=== PATIENT | female | born 1990 | race Caucasian/White ===

== ENCOUNTER 2022-04-20 17:22 | Emergency (ER) | payer BC, SELFPAY ==
[2022-04-20 18:10] VITALS: BP 111/79; PULSE 94; RESP 18; TEMP 36.4; O2SAT 98
--- NOTE | 2022-04-20 18:32 | ED.EAR ---
HPI - Ear Problem General Chief complaint: Ear Stated complaint: bilateral ear pain Time Seen by Provider: 04/20/22 18:15 Source: patient Mode of arrival: ambulatory Limitations: no limitations History of Present Illness HPI Narrative: Jovita is a 31-year-old female patient presenting to clinic today with complaints of nasal congestion, bilateral ear pain, and sore throat. She reports her symptoms began after [facility]. States that she has had a fever and some chills. Related Data Home Medications Medication Instructions Recorded Confirmed cetirizine 10 mg tablet (Zyrtec) 10 mg PO DAILY 04/20/22 04/20/22 cholecalciferol (vitamin D3) 50 50 mcg PO DAILY 04/20/22 04/20/22 mcg (2,000 unit) capsule (Vitamin D3) docusate calcium 50 mg capsule 50 mg PO DAILY 04/20/22 04/20/22 escitalopram oxalate 20 mg tablet 20 mg DAILY 04/20/22 04/20/22 montelukast 10 mg tablet 10 mg PO QPM 04/20/22 04/20/22 (Singulair) vitamin-ferrous 1 tablet PO DAILY 04/20/22 04/20/22 sulfate-folic acid 27 mg-0.3 mg tablet Allergies Allergy/AdvReac Type Severity Reaction Status Date / Time Sulfa (Sulfonamide Allergy Vomiting Verified 04/20/22 18:16 Antibiotics) Review of Systems Review of Systems: Pertinent positives per HPI. Patient denies any rash, headache, visual changes, dizziness, shortness of breath, chest pain, palpitations, nausea, vomiting, diarrhea, constipation, abdominal pain, or any urinary issues. [facility] Comments At the time of my signature, I reviewed and agree with the nursing past medical, surgical, social, and family history. There is no relevant family history pertinent to the patient complaint. Exam Narrative: General: Well-developed, well nourished, in no apparent distress Head: Normocephalic, atraumatic Eyes: Pupils equally round and reactive to light bilaterally, EOM intact, sclera and conjunctive clear, no discharge, lids normal Ears: TMs intact, bulging, red ear canals clear, no drainage, grossly hearing normal. Nose: Nares patent, clear nasal discharge, no inflammation, no sinus tenderness. Mouth: Oral pharynx without lesions or masses, good dentition, MMM. Oropharynx red Neck: Supple, trachea midline, mild enlargement of anterior or posterior cervical nodes, no thyroid masses or goiter palpable. Cardio: Regular rate and rhythm, s1 and s2 normal, no murmur appreciated. Resp: Clear to auscultation bilaterally, no rhonchi, rales, wheezing or rubs Course Course Emergency Course: Portions of this record may have been created with voice recognition software. Level of Care: Express Care Visit Vital Signs Vital signs: Vital Signs Temperature 36.4 C L 04/20/22 18:10 Pulse Rate 94 04/20/22 18:10 Respiratory Rate 18 04/20/22 18:10 Blood Pressure 111/79 04/20/22 18:10 Pulse Oximetry 98 04/20/22 18:10 Oxygen Delivery Room Air 04/20/22 18:10 Temperature 36.4 C L 04/20/22 18:10 Pulse Rate 94 04/20/22 18:10 Respiratory Rate 18 04/20/22 18:10 Blood Pressure 111/79 04/20/22 18:10 Pulse Oximetry 98 04/20/22 18:10 Oxygen Delivery Room Air 04/20/22 18:10 Vital signs reviewed Medical Decision Making MDM Narrative Medical decision making narrative: At the time of visit patient is resting comfortably on exam table. I suspect the patient has URI with otitis media bilaterally. Prescription for amoxicillin and prednisone was sent to pharmacy. Supportive measures were discussed with the patient she voiced understanding discharge instructions and agrees to treatment plan. Differential Diagnosis Differential Diagnosis: Otitis media, otitis externa, eustachian tube dysfunction, upper respiratory infection, pharyngitis Vital Signs Vital Signs: Vital Signs Temperature 36.4 C L 04/20/22 18:10 Pulse Rate 94 04/20/22 18:10 Respiratory Rate 18 04/20/22 18:10 Blood Pressure 111/79 04/20/22 18:10 Pulse Oximetry 98 04/20/22 18:10 Oxygen Del
== END 2022-04-20 18:38 | disposition home or self-care (01) ==
PROVIDERS: Emergency Provider Nurse Practitioner Family; PCP Family Medicine
DX: H66.93 Otitis media, unspecified, bilateral (principal); J06.9 Acute upper respiratory infection, unspecified; F41.9 Anxiety disorder, unspecified; F32.A Depression, unspecified
CPT/HCPCS: 99203; G0463

== ENCOUNTER 2022-07-24 12:07 | Outpatient (CLI) | payer BC, SELFPAY ==
--- NOTE | ~2022-07-24 | MMUS_ITS ---
EXAMINATION: MM diagnostic hayley BI w gene, US breast RT complete HISTORY: Right nipple discharge TECHNIQUE: Additional 3-D tomosynthesis images of the breasts were performed and synthetic 2-D images were generated. CAD analysis was submitted and interpreted. High resolution complete right breast ul trasound was performed. COMPARISON: None BREAST PARENCHYMAL COMPOSITION: Breast composed of scattered areas of fibroglandular density FINDINGS: MAMMOGRAPHIC FINDINGS: There are no suspicious masses, calcifications or architectural distortion in either breast to sugges t malignancy. ULTRASOUND: Complete US of all 4 quadrants of the right breast and retroareolar region was reviewed. Normal heter ogeneous echotexture without focal solid or cystic mass. IMPRESSION: 1. No evidence for malignancy in either breast. 2. Routine yearly screening mammogram and regular clinical breast examination are recommended. BI-RADS Category 1: Negative Reviewed, dictated and finalized at location A. IMPRESSION: 1. No evidence for malignancy in either breast. 2. Routine yearly screening mammogram and regular clinical breast examination a re recommended. BI-RADS Category 1: Negative
== END 2022-07-24 12:08 | disposition home or self-care (01) ==
PROVIDERS: PCP Family Medicine
DX: N64.52 Nipple discharge (principal)
CPT/HCPCS: 76641; 77062; 77066; G0279

== ENCOUNTER 2025-03-03 10:57 | Emergency (ER) | payer BC, SELFPAY ==
--- NOTE | 2025-03-03 10:58 | ED.URI ---
HPI - URI/Sore Throat General Chief Complaint: Upper Respiratory Infection Stated Complaint: Cough Time Seen by Provider: 03/03/25 10:58 Source: patient Mode of arrival: ambulatory Limitations: no limitations History of Present Illness HPI Narrative: Jovita is a 34-year-old female patient presenting to the clinic today with complaints of a cough, sinus congestion, and sinus pressure x 2 weeks. She reports productive cough with green phlegm and green nasal drainage. No chest pain or shortness of breath. Related Data Home Medications ?Medication ?Instructions ?Recorded ?Confirmed ?Last Taken ?Type cetirizine 10 mg tablet (Zyrtec) 10 mg PO DAILY 04/20/22 04/20/22 Unknown History cholecalciferol (vitamin D3) 50 50 mcg PO DAILY 04/20/22 04/20/22 Unknown History mcg (2,000 unit) capsule (Vitamin D3) docusate calcium 50 mg capsule 50 mg PO DAILY 04/20/22 04/20/22 Unknown History escitalopram oxalate 20 mg tablet 20 mg DAILY 04/20/22 04/20/22 Unknown History montelukast 10 mg tablet 10 mg PO QPM 04/20/22 04/20/22 Unknown History (Singulair) Allergies Allergy/AdvReac Type Severity Reaction Status Date / Time Sulfa (Sulfonamide Allergy Intermediate Nausea and Verified 03/03/25 10:58 Antibiotics) Vomiting Review of Systems Review of Systems: Pertinent positives per HPI. Patient denies any fever, chills, rash, visual changes, dizziness, shortness of breath, chest pain, palpitations, nausea, vomiting, diarrhea, constipation, abdominal pain, or any urinary issues. [facility] Comments At the time of my signature, I reviewed and agree with the nursing past medical, surgical, social, and family history. There is no relevant family history pertinent to the patient complaint. Exam Narrative: General: Well-developed, obese, in no apparent distress Head: Normocephalic, atraumatic Eyes: Pupils equally round and reactive to light bilaterally, EOM intact, sclera and conjunctive clear, no discharge, lids normal Ears: TMs intact and clear, ear canals clear, no drainage, grossly hearing normal. Nose: Nares patent, green nasal discharge, moderate inflammation, maxillary and frontal sinus tenderness. Mouth: Oral pharynx red without lesions or masses, good dentition, MMM. PND Neck: Supple, trachea midline, no enlargement of anterior or posterior cervical nodes, no thyroid masses or goiter palpable. Cardio: Regular rate and rhythm, s1 and s2 normal, no murmur appreciated. Resp: Clear to auscultation bilaterally, no rhonchi, rales, wheezing or rubs Course Course Emergency Course: Portions of this record may have been created with voice recognition software. Level of Care: Express Care Visit Vital Signs Vital signs: Vital signs reviewed MDM - URI/Sore Throat MDM Narrative Medical decision making narrative: At the time of visit patient is resting comfortably on the exam table. Patient appears to be nontoxic. Complaints of a cough, sinus congestion, and sinus pressure x 2 weeks. She reports productive cough with green phlegm and green nasal drainage. No chest pain or shortness of breath. On exam patient has TMs intact and clear, green nasal drainage, moderate anterior turbinate inflammation, oral pharynx with postnasal drip, lung sounds are clear, heart rates regular rate and rhythm Plan: I suspect patient has acute bacterial rhinosinusitis and post nasal drip. Rx for Augmentin, Tessalon Perles, and prednisone. Supportive measures were discussed with the patient and they voiced understanding discharge instructions and agrees to treatment plan. Return precautions reviewed Differential Diagnosis Differential diagnosis: Likely upper respiratory infection, otitis media, sinusitis, viral infection, bronchitis, influenza, pharyngitis and other (COVID) Discharge Plan Discharge Clinical Impression: Post-nasal drip, Acute bacterial rhinosinusitis Patient Disposition: Home Condition: Stable Instructions: Antibiotic Form, Rhinosinusitis (ED), Postnasal Drip (DC) Additional Instructions: Take prescription medications only as prescribed-Augmentin, prednisone, and Tessalon Perles. Increase fluids and stay well hydrated May take Tylenol or motrin as directed on bottle for pain/fever May use Flonase 1 spray in each nare daily May take OTC antihistamines such as Zyrtec or Claritin daily as directed on bottle May apply Vicks vapor rub to chest to open sinuses Sinus rinses for congestion Cepacol spray, cough drops, throat lozenges, warm tea with honey/lemon, gargle salt water to soothe throat BRAT diet for diarrhea Clear liquids x 24 hours then advance as tolerated for nausea/vomiting Go to the ED if you develop a worsening in your condition- high fever not controlled by Tylenol or Motrin, dehydration, weakness, lethargy, shortness of breath, or chest pain. Follow up with your PCP in 3-5 days if symptoms persist. Patient Language: Burkinan Prescriptions: New amoxicillin-pot clavulanate 875-125 mg tablet 1 tablet PO Q12H 10 Days Qty: 20 0RF prednisone 20 mg tablet 40 mg PO DAILY 5 Days Qty: 10 0RF benzonatate 200 mg capsule 200 mg PO TID 7 Days Qty: 21 0RF No Action cetirizine [Zyrtec] 10 mg Tablet 10 mg PO DAILY escitalopram oxalate 20 mg tablet 20 mg DAILY cholecalciferol (vitamin D3) [Vitamin D3] 50 mcg (2,000 unit) Capsule 50 mcg PO DAILY montelukast [Singulair] 10 mg Tablet 10 mg PO QPM docusate calcium 50 mg Capsule 50 mg PO DAILY Follow-up/Referrals: UNKNOWN,DOCTOR [Non-Staff] Time of Disposition: 11:16 Quality NIHSS Nursing Documentation ED NIHSS nursing documentation: reviewed/agree
[2025-03-03 11:04] VITALS: BP 118/57; PULSE 71; RESP 18; TEMP 36.2; O2SAT 100
== END 2025-03-03 11:19 | disposition home or self-care (01) ==
PROVIDERS: Emergency Provider Nurse Practitioner Family; PCP Student in an Organized Health Care Education/Training Program
DX: J01.90 Acute sinusitis, unspecified (principal); B96.89 Other specified bacterial agents as the cause of diseases classified elsewhere; R09.82 Postnasal drip
CPT/HCPCS: 99213; G0463